=== PATIENT | male | born 1960 | race Caucasian/White ===

== ENCOUNTER → 2017-03-17 | Day surgery (SDC) | payer OTHER ==
--- NOTE | 2017-03-11 09:21 | MH ---
cc: KAILA TRIVEDI DATE OF ADMISSION 03/17/2017 ADMISSION DIAGNOSIS Cataract, left eye. HISTORY OF PRESENT ILLNESS This 57-year-old white male is coming through [facility] for the purpose of a lens extraction of the left eye with intraocular lens implant under local anesthesia. He has noticed decreasing visual acuity interfering with his daily activities and elected to have the above procedure. His best corrected visual acuity is 20/20 in the right eye and 20/60 -1 in the left. PAST MEDICAL HISTORY The patient has a history of prostate problems but denies hypertension, diabetes or other medical illness. PAST SURGICAL HISTORY Surgical history includes that of sinus surgery, left wrist and left shoulder surgery. The patient has had cataract surgery with intraocular lens implant in the right eye. MEDICATION Daily medication is terazosin. ALLERGIES The patient is possibly allergic to PENICILLIN. SOCIAL HISTORY The patient does not smoke and drinks three beers twice weekly. FAMILY HISTORY Family history is positive for mother with cataract. REVIEW OF SYSTEMS HEAD: Patient denies severe headaches, dizziness or recent head injury. EARS: Patient denies hearing loss, ear pain, discharge or ringing in the ears. NOSE: Patient denies nasal discharge, obstruction or frequent colds. MOUTH AND THROAT: Patient denies soreness of the mouth or tongue, bleeding gums, trouble swallowing, changes in voice or sore throat. NECK: Patient denies neck pain or swelling, limitation of neck movement or neck injury. CARDIOPULMONARY SYSTEM: Patient denies shortness of breath, orthopnea, chronic cough, sputum production, hemoptysis, chest pain, wheezing, palpitations or light-headedness. GI SYSTEM: Patient denies poor appetite, nausea, vomiting, abdominal pain, ulcers, or change in bowel habits. The patient has a history of hemorrhoids. SYSTEM: The patient has urinary frequency and takes terazosin for that. The patient denies dysuria, change in urine color. NERVOUS SYSTEM: Patient denies convulsions, vertigo, stroke, numbness or weakness. PHYSICAL EXAMINATION VITAL SIGNS: Blood pressure is 118/72, pulse 76, respirations 16. HEAD: Normocephalic, atraumatic. NOSE: Without rhinorrhea. THROAT: Clear. NECK: Supple. CHEST: Clear. HEART: Regular rhythm. ABDOMEN: Without tenderness. EXTREMITIES: Without edema. NEUROLOGIC: Within normal limits. Mental status within normal limits. EYE EXAM: The patient's best corrected visual acuity is 20/20 in the right eye and 20/60 -1 in the left eye. Visual anderson are full to confrontation testing. External ocular muscle exam reveals full versions with orthophoria at distance and near. Pupils are 3 mm equal, round, reactive to light without afferent defect. Anterior segment examination reveals hemangioma, small in the left upper lid. A posterior chamber intraocular lens is in place in the right eye with a hazy posterior capsule peripherally and he has nuclear sclerotic and posterior subcapsular cataract in the left eye. Intraocular pressure is 13 in the right eye and 11 in the left eye by applanation tonometry. Dilated fundus exam revealed sharp disks with cup-to-disk ratio of 0.35 in the right eye and 0.45 in the left. An epiretinal membrane is noted in the macula of the right eye and the macula of the left eye is within normal limits. A posterior vitreous detachment is present bilaterally. IMPRESSION 1. Cataract, left eye. 2. Pseudophakia, right eye. 3. Posterior vitreous detachment, both eyes. 4. Epiretinal membrane macula of the right eye. PLAN Lens extraction of the left eye with intraocular lens implant under local anesthesia. Iris retractors may be used as the patient does not dilate well. The patient has been cleared medically. He has been counseled as to the risks, benefits and alternatives and elected to proceed. I feel that cataract surgery will improve the quality of life and activities of daily living in this patient. MD JESSE Summers/CHIARA /11:52 AM /9:16 AM
[~2017-03-17] VITALS: Ht 170.2 cm; Wt 86.6 kg
[~2017-03-17] MED LIST: ACETYLCHOLINE CHL OPHT SOLN 1:100 2 ML VIAL ONE; BACL10TA PO; CHLORHEXIDINE GLUCONATE 2 % 1 PACK (2 CLOTHS) TOPICAL PRN; DICL75 PO; EPINEPHrine HCL PF/SF (1:1000) 1 MG/ML AMP I-OCULAR ONE; HYALURONIDASE/LIDOCAINE/BUPIVACAINE 5 ML SYR LEFT EYE ONE; HYALURONIDASE/LIDOCAINE/BUPIVACAINE 5 ML SYR ONE; INSULIN HUMAN REGULAR 1,000 UNITS/10 ML VIAL SQ PRN; LACTATED RINGER'S 1000 ML IV PRN; LEXA10TA PO; MELO7.5T27 PO; METOPROLOL TARTRATE 25 MG TAB PO PRN; PILOCARPINE HCL 2% OPHT SOLN 15 ML BTL ONE; POVIDONE IODINE 5% (ANTISEPSIS KIT) 4 APPLICATIONS EACH NARE PRN; PROPARACAINE HCL 0.5% OPHT SOLN 15 ML BTL LEFT EYE ONE; PROPOFOL 200 MG/20 ML AMP ONE; SODIUM CHLORID 0.9% 500 ML IV PRN; TERA5CAP3 PO; TOBRAMYCIN/DEXAMETHASONE OPTH OINT 3.5 GM TUBE ONE; ULTR50TA PO; VISCOAT OPHT IRRIG SOLN 0.75 ML SYRINGE ONE
[2017-03-17 07:28] VITALS: PULSE 67
[2017-03-17] MEDS: PHENYLEPHRINE HCL 2.5% OPTH SOLN 2 ML BTL LEFT EYE SCH ×4 (07:30→07:39)
[2017-03-17] MEDS: DICLOFENAC SOD 0.1% OPHT SOLN 2.5 ML BTL LEFT EYE SCH ×4 (07:30→07:39)
[2017-03-17] MEDS: TROPICAMIDE 1% OPHT SOLN 15 ML BTL LEFT EYE SCH ×4 (07:30→07:39)
[2017-03-17] MEDS: GATIFLOXACIN 0.5% OPHT SOLN 2.5 ML BTL LEFT EYE SCH ×4 (07:30→07:39)
[2017-03-17] MEDS: CYCLOPENTOLATE HCL 1% OPHT SOLN 2 ML BTL LEFT EYE SCH ×4 (07:30→07:39)
[2017-03-17 08:00] VITALS: PULSE 67
[2017-03-17 08:24] VITALS: PULSE 64
[2017-03-17 09:42] VITALS: TEMP 98.1
[2017-03-17 10:00] VITALS: BP 135/83; PULSE 67; RESP 14; O2SAT 98
--- NOTE | 2017-03-18 13:28 | MP ---
cc: KAILA MARTI DATE OF SURGERY 03/17/2017 PREOPERATIVE DIAGNOSIS Cataract, left eye. POSTOPERATIVE DIAGNOSIS Cataract, left eye. OPERATION Extracapsular cataract extraction with posterior chamber intraocular lens implant by phacoemulsification, left eye. SURGEON Kaila Marti M.D. ANESTHESIA Local. COMPLICATIONS None. INDICATIONS See history and physical previously dictated. OPERATIVE PROCEDURE The patient had adequate retrobulbar and eyelid blocks administered in the holding area and was brought to the operating room. The left eye was prepped and draped in the usual sterile ophthalmic manner. A lid speculum was inserted in the left eye. A 4-0 silk bridle suture was placed through the conjunctiva near the superior rectus muscle and it was tacked to the drape. A fornix-based conjunctival flap was prepared spanning approximately 5 mm in width. Hemostasis was obtained with wet-field cautery. A 3.5 mm groove was made 1 mm from the limbus and dissected up to the limbus in the form of a scleral pocket incision. A stab incision was then made at the 2 o'clock position. Preservative-free epinephrine was injected mixed with balanced salt solution in the sideport incision. Viscoelastic was injected into the anterior chamber. The anterior chamber was entered with a 2.75 mm keratome through the scleral pocket incision. A 360 degree continuous curvilinear capsulorrhexis was then performed. Hydrodissection was utilized to divide the nucleus into inner and outer components and to separate the cortex from the capsule. Phacoemulsification was then utilized to remove the nucleus. The outer nuclear layer was removed with irrigation and aspiration and short bursts of ultrasound as necessary. The cortex was removed with the irrigation-aspiration handpiece. The posterior capsule was polished with the capsule polisher. Viscoelastic was injected into the capsular bag. The intraocular lens was inspected and found to be in good condition. The lens utilized was an Andrew model SA60AT with a power of +17.5 diopters. The lens was inserted into the capsular bag. The viscoelastic in the anterior chamber was then removed with the irrigation-aspiration handpiece. Viscoelastic was also removed from beneath the intraocular lens. The anterior chamber was filled with Miochol-E through the stab incision and pressurized. One 10-0 nylon suture was placed through the sideport incision. The suture was trimmed close to the knot and the knot was buried on the corneal side. The wound was checked for leaks at this pressure and normalized pressure, and there were none. The 4-0 bridle suture was removed. The conjunctival flap was brought down over the wound and secured with cautery. Pilocarpine 2% eye drops were instilled topically. The lid speculum was removed. TobraDex ophthalmic ointment was applied. The eye was double patched and shielded. The patient tolerated the procedure well and left the Operating Room in satisfactory condition. MD JESSE Summers/LINDSEY /9:48 AM /1:12 PM
== END | disposition home or self-care (01) ==
LOC: PHSDC 07:06
PROVIDERS: ATTEND Ophthalmology
DX: H26.9 Unspecified cataract (principal); H43.813 Vitreous degeneration, bilateral
CPT/HCPCS: 00142; 66984; J0171; J7040; V2632

== ENCOUNTER 2017-06-08 12:51 | Emergency (ER) | payer OTHER ==
[~2017-06-08] VITALS: Ht 170.2 cm; Wt 81.0 kg
[~2017-06-08 12:51] MED LIST changes: -ACETYLCHOLINE CHL OPHT SOLN 1:100 2 ML VIAL ONE; -CHLORHEXIDINE GLUCONATE 2 % 1 PACK (2 CLOTHS) TOPICAL PRN; -DICL75 PO; -EPINEPHrine HCL PF/SF (1:1000) 1 MG/ML AMP I-OCULAR ONE; -HYALURONIDASE/LIDOCAINE/BUPIVACAINE 5 ML SYR LEFT EYE ONE; -HYALURONIDASE/LIDOCAINE/BUPIVACAINE 5 ML SYR ONE; -INSULIN HUMAN REGULAR 1,000 UNITS/10 ML VIAL SQ PRN; -LACTATED RINGER'S 1000 ML IV PRN; -LEXA10TA PO; -METOPROLOL TARTRATE 25 MG TAB PO PRN; -PILOCARPINE HCL 2% OPHT SOLN 15 ML BTL ONE; -POVIDONE IODINE 5% (ANTISEPSIS KIT) 4 APPLICATIONS EACH NARE PRN; -PROPARACAINE HCL 0.5% OPHT SOLN 15 ML BTL LEFT EYE ONE; -PROPOFOL 200 MG/20 ML AMP ONE; -SODIUM CHLORID 0.9% 500 ML IV PRN; -TOBRAMYCIN/DEXAMETHASONE OPTH OINT 3.5 GM TUBE ONE; -ULTR50TA PO; -VISCOAT OPHT IRRIG SOLN 0.75 ML SYRINGE ONE
[2017-06-08 12:54] VITALS: BP 187/81; PULSE 67; RESP 16; TEMP 97.7; O2SAT 100
[2017-06-08] MEDS ORDERED: SODIUM CHLOR 0.9% 1000 ML INJ 1,000 ML IV ONE (13:21)
[2017-06-08] MEDS ORDERED: HYDROmorphone HCL PF 2 MG/ML VIAL IVS ONE (13:30)
[2017-06-08] MEDS ORDERED: ONDANSETRON HCL 4 MG/2 ML VIAL IV PUSH ONE (13:30)
[2017-06-08] MEDS ORDERED: SODIUM CHLORIDE 0.9% FLUSH 10 ML FLUSH IVF PRN (13:30)
[2017-06-08] MEDS ORDERED: KETOROLAC TROMETHAMINE 30 MG/ML (IVP) VIAL IV PUSH ONE (13:30)
--- NOTE | 2017-06-08 13:38 | PD ---
HPI Chief Complaint: GI Complaint Time Seen by Provider: 13:21 Travel History International Travel<30 days: No Contact w/Intl Traveler<30days: No Traveled to known affect area: No History of Present Illness HPI Patient presents with complaints of right flank pain radiating into his right groin. Denies hematuria. Denies family history of kidney stones. Reports fair fluid intake. Started approximately an hour prior to arrival. Colicky in nature. Pain 10 out of 10. Described as sharp. Mild nausea. No vomiting. Past medical history for enlarged prostate. Followed by urology. No previous abdominal surgeries. Patient urinating prior to arrival. PFSH Past Medical History Blood Disorders: No Anxiety: Yes Depression: No Cancer: Yes (SKIN (REMOVED)) Cardiovascular Problems: No Diabetes: No Endocrine: No Glaucoma: No Genitourinary: Yes (PROSTATE PROBLEMS) Hepatitis: No Hiatal Hernia: No Hypertension: No Immune Disorder: No Medical other: Yes (FIBROMYALGIA LIKE CONDITION) Musculoskeletal: Yes (CHRONIC LUMBAR PAIN, LEFT WRIST HX OF FRACTURE) Neurologic: Yes (SEIZURES CHILD) Psychiatric: Yes (ANXIETY HX) Reproductive: No Respiratory: No Thyroid Disease: No Tetanus Vaccination: Unknown Past Surgical History Abdominal Surgery: No AICD: No Body Medical Devices: LEFT FOREARM HARDWARE Cardiac Surgery: No Ear Surgery: No Endocrine Surgery: No Eye Surgery: Yes (RIGHT CATARACT EXTRAC.) Genitourinary Surgery: No Gynecologic Surgery: No Joint Replacement: No Oral Surgery: No Pacemaker: No Thoracic Surgery: No Other Surgery: Yes (SINUS SURGERY) Social History Alcohol Use: Yes (OCCAS) Tobacco Use: No Substance Use: No Allergies-Medications (Allergen,Severity, Reaction): Coded Allergies: penicillin G (Unverified Allergy, Unknown, UNKNOWN, 06/08/17) Reported Meds & Prescriptions Reported Meds & Active Scripts Active Reported Terazosin (Terazosin HCl) 5 Mg Cap 5 Mg PO HS Review of Systems General / Constitutional: No: Fever Eyes: No: Visual changes HENT: No: Headaches Cardiovascular: No: Chest Pain or Discomfort Respiratory: No: Shortness of Breath Gastrointestinal: No: Abdominal Pain Genitourinary: Positive: Flank Pain, No: Dysuria Musculoskeletal: No: Pain Skin: No Rash Neurologic: No: Weakness Psychiatric: No: Depression Endocrine: No: Polydipsia Hematologic/Lymphatic: No: Easy Bruising Physical Exam Narrative GENERAL: Well-nourished, well-developed patient. SKIN: Focused skin assessment warm/dry. HEAD: Normocephalic. EYES: No scleral icterus. No injection or drainage. NECK: Supple, trachea midline. No JVD or lymphadenopathy. CARDIOVASCULAR: Regular rate and rhythm without murmurs, gallops, or rubs. RESPIRATORY: Breath sounds equal bilaterally. No accessory muscle use. GASTROINTESTINAL: Abdomen soft, non-tender, nondistended. MUSCULOSKELETAL: No cyanosis, or edema. BACK: Nontender without obvious deformity. No CVA tenderness. Data Data Last Documented VS Vital Signs Date Time Temp Pulse Resp B/P (MAP) Pulse Ox O2 Delivery O2 Flow Rate FiO2 06/08/17 13:57 70 20 152/76 (101) 98 Room Air 06/08/17 12:54 97.7 Orders Orders Complete Blood Count With Diff (06/08/17 13:21) Urinalysis - C+S If Indicated (06/08/17 13:21) Ct Abd/Pel W/O Iv Contrast (06/08/17 13:21) Ecg Monitoring (06/08/17 13:21) Iv Access Insert/Monitor (06/08/17 13:21) Hydromorphone Pf Inj (Dilaudid Pf Inj) (06/08/17 13:30) Ketorolac Inj (Toradol Inj) (06/08/17 13:30) Ondansetron Inj (Zofran Inj) (06/08/17 13:30) Sodium Chloride 0.9% Flush (Ns Flush) (06/08/17 13:30) Sodium Chlor 0.9% 1000 Ml Inj (Ns 1000 M (06/08/17 13:21) Labs Laboratory Tests Test 06/08/17 13:30 White Blood Count 10.8 TH/MM3 Red Blood Count 5.29 MIL/MM3 Hemoglobin 15.5 GM/DL Hematocrit 45.6 % Mean Corpuscular Volume 86.2 FL Mean Corpuscular Hemoglobin 29.3 PG Mean Corpuscular Hemoglobin Concent 34.0 % Red Cell Distribution Width 11.9 % Platelet Count 200 TH/MM3 Mean Platelet Volume 8.6 FL Neutrophils (%) (Auto) 83.5 % Lymphocytes (%) (Auto) 9.7 % Monocytes (%) (Auto) 5.4 % Eosinophils (%) (Auto) 0.3 % Basophils (%) (Auto) 1.1 % Neutrophils # (Auto) 9.1 TH/MM3 Lymphocytes # (Auto) 1.0 TH/MM3 Monocytes # (Auto) 0.6 TH/MM3 Eosinophils # (Auto) 0.0 TH/MM3 Basophils # (Auto) 0.1 TH/MM3 CBC Comment DIFF FINAL Differential Comment MDM Medical Decision Making Medical Screen Exam Complete: Yes Emergency Medical Condition: Yes Differential Diagnosis Nephrolithiasis, UTI, cystitis Narrative Course Assessment plan discussed with patient and at bedside. Patient's pain prior to discharge much improved. Last 72 hours Impressions Abdomen/Pelvis CT 06/08/17 1321 Signed Impressions: Service Date/Time: Thursday, June 08, 2017 13:41 - CONCLUSION: 1. Patient's symptoms appear to be due to a 3 mm stone in the right ureter as it traverses over the right iliac artery. Associated hydroureter and right-sided hydronephrosis. 2. Punctate, 2-3 mm stones in the collecting system of both kidneys. There appears to be one on each side. 3. Appendix is identified and is radiographically normal. Probable small cyst in the right hepatic lobe. Teo Mahoney MD Diagnosis Primary Impression: Nephrolithiasis Patient Instructions: General Instructions Additional Instructions: Encourage fluids fluids fluids. Encouraged to follow-up with his urologist. Return to the emergency room with any onset of new symptoms. Med/Other Pt SpecificInfo: Prescription(s) given Scripts Ondansetron (Zofran) 4 Mg Tab 4 MG PO Q6HR Y for NAUSEA OR VOMITING, #10 TAB 0 Refills Prov: Tony Galeas MD 06/08/17 Tramadol (Ultram) 50 Mg Tab 50 MG PO Q4H Y for PAIN, #15 TAB 0 Refills Prov: Tony Galeas MD 06/08/17 Tamsulosin (Flomax) 0.4 Mg Cap 0.4 MG PO HS for Manage Prostate Problems, #30 CAP 0 Refills Prov: Tony Galeas MD 06/08/17 Disposition: 01 DISCHARGE HOME Condition: Good Tony Galeas MD Jun 08, 2017 13:38
[2017-06-08 13:43] LABS: AUTOMATED NEUTROPHIL # 9.1 TH/MM3 (1.8-7.7); BASOPHIL # 0.1 TH/MM3 (0-0.2); BASOPHIL % 1.1 % (0.0-2.0); EOSINOPHIL % 0.3 % (0.0-4.0); HEMATOCRIT 45.6 % (39.0-51.0); HEMOGLOBIN 15.5 GM/DL (13.0-17.0); LYMPH % 9.7 % (9.0-44.0); MEAN CELL VOLUME 86.2 FL (80.0-100.0); MEAN CORPUSCULAR HEMOGLOBIN 29.3 PG (27.0-34.0); MEAN PLATELET VOLUME 8.6 FL (7.0-11.0); MONO % 5.4 % (0.0-8.0); MONOCYTE # 0.6 TH/MM3 (0-0.9); NEUT % 83.5 % (16.0-70.0); PLATELET COUNT 200 TH/MM3 (150-450); RED BLOOD COUNT 5.29 MIL/MM3 (4.50-5.90); RED CELL DISTRIBUTION WIDTH 11.9 % (11.6-17.2); WHITE BLOOD COUNT 10.8 TH/MM3 (4.0-11.0)
[2017-06-08 13:57] VITALS: BP 152/76; PULSE 70; RESP 20; O2SAT 98
--- NOTE | 2017-06-08 14:42 | RADRPT ---
EXAM DATE/TIME: 06/08/2017 13:41 [facility] COMPARISON: No previous studies available for comparison. INDICATIONS : Right flank and inguinal pain since yesterday. ORAL CONTRAST: No oral contrast ingested. RADIATION DOSE: 9.53 CTDIvol (mGy) MEDICAL HISTORY : None SURGICAL HISTORY : None. ENCOUNTER: Initial ACUITY: 2 days PAIN SCALE: 8/10 LOCATION: Right flank TECHNIQUE: Volumetric scanning of the abdomen and pelvis was performed. Using automated exposure control and ad justment of the mA and/or kV according to patient size, radiation dose was kept as low as reasonably achievable to obtain optimal diagnostic quality images. DICOM format image data is available electro nically for review and comparison. FINDINGS: LOWER LUNGS: The visualized lower lungs are clear. LIVER: Probable 1 cm cyst in the right hepatic lobe. There is no dilation of the biliary tree. No calcifie d gallstones. SPLEEN: Normal size without lesion. PANCREAS: Within normal limits. KIDNEYS: Normal in size and shape. Punctate, 2-3 mm calcifications are seen in both collecting systems. On the right, there is some hydronephrosis and hydroureter apparently due to a 3 mm ureteral calculus which is seen in the right ureter as it traverses over the right iliac artery in the mid pelvis. No left-s ided ureteric stones. ADRENAL GLANDS: Within normal limits. VASCULAR: There is no aortic aneurysm. BOWEL/MESENTERY: The stomach, small bowel, and colon demonstrate no acute abnormality. There is no free intraperitone al air or fluid. The appendix is identified and is radiographically normal. ABDOMINAL WALL: Within normal limits. RETROPERITONEUM: There is no lymphadenopathy. BLADDER: No wall thickening or mass. REPRODUCTIVE: Within normal limits. INGUINAL: There is no lymphadenopathy or hernia. MUSCULOSKELETAL: Within normal limits for patient age. CONCLUSION: 1. Patient's symptoms appear to be due to a 3 mm stone in the right ureter as it traverses over the r ight iliac artery. Associated hydroureter and right-sided hydronephrosis. 2. Punctate, 2-3 mm stones in the collecting system of both kidneys. There appears to be one on each side. 3. Appendix is identified and is radiographically normal. Probable small cyst in the right hepatic lo be. Teo Mahoney MD on June 08, 2017 at 14:34 Board Certified Radiologist. This report was verified electronically.
[2017-06-08] MEDS ORDERED: TAMS5CAP PO (15:31)
[2017-06-08] MEDS ORDERED: TRAM50 PO (15:31)
[2017-06-08] MEDS ORDERED: ZOFR4TAB PO (15:32)
[2017-06-08 15:51] VITALS: BP 164/86
== END 2017-06-08 15:59 | disposition home or self-care (01) ==
LOC: PHED 12:51
DX: N13.2 Hydronephrosis with renal and ureteral calculous obstruction (principal); N40.0 Benign prostatic hyperplasia without lower urinary tract symptoms; F41.9 Anxiety disorder, unspecified; M79.7 Fibromyalgia; Z86.69 Personal history of other diseases of the nervous system and sense organs
CPT/HCPCS: 74176; 85025; 96361; 96374; 96375; 99284; J1170; J1885; J2405; J7030